=== PATIENT | female | born 1970 | race Caucasian/White ===

== ENCOUNTER 2017-11-04 12:34 | Emergency (ER) | payer MEDICAID ==
[~2017-11-04] VITALS: Ht 160 cm; Wt 85.0 kg
[~2017-11-04 12:34] MED LIST: ACET-2119 PO; ASPI81TA48 PO; BACL10TA PO; BUSP5TAB3 PO; GABA-338 PO; LOP25T PO; NORCO10T PO; PANT20TA3 PO; SERT50TA PO; ZOC40T PO
[2017-11-04 12:43] VITALS: BP 146/89
== END 2017-11-04 13:15 | disposition home or self-care (01) ==
LOC: ER 12:34
DX: M79.672 Pain in left foot (principal); M79.671 Pain in right foot; I25.10 Atherosclerotic heart disease of native coronary artery without angina pectoris; I25.2 Old myocardial infarction; F12.10 Cannabis abuse, uncomplicated; Z88.6 Allergy status to analgesic agent; Z88.8 Allergy status to other drugs, medicaments and biological substances; Z79.82 Long term (current) use of aspirin; Z95.1 Presence of aortocoronary bypass graft
CPT/HCPCS: 99281

== ENCOUNTER 2018-02-26 14:59 | Emergency (ER) | payer MEDICAID ==
[~2018-02-26] VITALS: Ht 160 cm; Wt 80.6 kg
[2018-02-26 15:26] VITALS: BP 113/54
[2018-02-26] MEDS ORDERED: CLIN300C85 PO (15:52)
== END 2018-02-26 16:05 | disposition home or self-care (01) ==
LOC: ER 14:59
DX: R21 Rash and other nonspecific skin eruption (principal); I25.10 Atherosclerotic heart disease of native coronary artery without angina pectoris; I25.2 Old myocardial infarction; G89.29 Other chronic pain; M54.9 Dorsalgia, unspecified; F12.10 Cannabis abuse, uncomplicated; Z95.1 Presence of aortocoronary bypass graft; Z79.82 Long term (current) use of aspirin; Z88.8 Allergy status to other drugs, medicaments and biological substances
CPT/HCPCS: 99284

== ENCOUNTER 2018-09-19 08:28 | Emergency (ER) | payer MEDICAID ==
[~2018-09-19] VITALS: Ht 160 cm; Wt 86.4 kg
[~2018-09-19 08:28] MED LIST changes: +CLIN-96 PO
[2018-09-19 09:14] VITALS: BP 125/93
[2018-09-19] MEDS ORDERED: CLIN150C8 PO (10:31)
== END 2018-09-19 10:46 | disposition home or self-care (01) ==
LOC: ER 08:28
DX: J02.9 Acute pharyngitis, unspecified (principal); R21 Rash and other nonspecific skin eruption; R49.0 Dysphonia; L53.8 Other specified erythematous conditions; I25.10 Atherosclerotic heart disease of native coronary artery without angina pectoris; I25.2 Old myocardial infarction; G89.29 Other chronic pain; F12.90 Cannabis use, unspecified, uncomplicated; Z95.5 Presence of coronary angioplasty implant and graft; Z90.49 Acquired absence of other specified parts of digestive tract; Z98.890 Other specified postprocedural states; Z98.51 Tubal ligation status; Z87.891 Personal history of nicotine dependence; Z60.2 Problems related to living alone; Z88.8 Allergy status to other drugs, medicaments and biological substances; Z79.82 Long term (current) use of aspirin; Z79.899 Other long term (current) drug therapy
CPT/HCPCS: 99283

== ENCOUNTER 2021-03-02 14:17 | Emergency (ER) | payer MEDICAID ==
[~2021-03-02] VITALS: Ht 160 cm; Wt 100.0 kg
[~2021-03-02 14:17] MED LIST changes: -CLIN-96 PO; +CLIN-97 PO; +CLIN150C8 PO; +PANT20TA18 PO; -PANT20TA3 PO
[2021-03-02 14:56] LABS: BASOPHILS % (AUTO) 0.2 % (0-1); EOSINOPHILS % (AUTO) 0.1 % (0-6); HEMATOCRIT 38.3 % (35.0-45.0); HEMOGLOBIN 12.2 g/dl (12.0-16.0); LYMPHOCYTES # (AUTO) 1.5 X10'3 (1.1-4.8); LYMPHOCYTES % (AUTO) 19.1 % (21-51); MEAN CORPUSCULAR HEMOGLOBIN 26.9 PG (27.0-31.0); MEAN CORPUSCULAR HGB CONC 31.8 g/dL (33.0-36.5); MEAN CORPUSCULAR VOLUME 84.5 FL (78-98); MEAN PLATELET VOLUME 8.3 FL (7.4-10.4); MONOCYTES # (AUTO) 0.6 X10'3 (0-0.9); MONOCYTES % (AUTO) 7.2 % (2-12); NEUTROPHILS # (AUTO) 5.7 X10'3 (1.8-7.7); NEUTROPHILS % (AUTO) 73.4 % (42-75); PLATELET COUNT 254 X10'3 (140-440); RED BLOOD COUNT 4.53 X10'6 (4.20-5.60); RED CELL DISTRIBUTION WIDTH 17.5 % (11.5-14.5); WHITE BLOOD COUNT 7.7 X10'3 (4.5-11.0)
[2021-03-02 15:01] LABS: URINE HCG NEGATIVE (NEG)
[2021-03-02 15:10] LABS: ALANINE AMINOTRANSFERASE 20 U/L (12-78); ALBUMIN 3.8 G/DL (3.4-5.0); ALBUMIN/GLOBULIN RATIO 0.9 (1.1-1.5); ALKALINE PHOSPHATASE 102 IU/L (46-116); ANION GAP 9 (8-16); ASPARTATE AMINO TRANSFERASE 14 U/L (10-37); BILIRUBIN,TOTAL 0.6 MG/DL (0.1-1.0); BLOOD UREA NITROGEN 7 MG/DL (7-18); BUN/CREATININE RATIO 8.2 (6.6-38.0); CALCIUM 8.7 MG/DL (8.5-10.1); CHLORIDE 104 MMOL/L (99-107); CREATININE 0.85 MG/DL (0.40-0.90); GLUCOSE 120 MG/DL (70-104); LIPASE 87 U/L (73-393); POTASSIUM 3.9 MMOL/L (3.5-5.1); SODIUM 139 MMOL/L (135-145); eGFR 70 ML/MIN
[2021-03-02 15:15] LABS: CLARITY,URINE SLIGHTLY CLOUDY (Clear); COLOR,URINE YELLOW (Yellow); GLUCOSE, URINE NEGATIVE (Neg); KETONES,URINE NEGATIVE (Neg); LEUKOCYTE ESTERASE ,URINE NEGATIVE (Neg); NITRITES, URINE NEGATIVE (Neg); OCCULT BLOOD,URINE TRACE-INTACT (Neg); PROTEIN,URINE NEGATIVE (Neg); UROBILINOGEN,URINE >=8.0 E.U/dL (0.2-1.0)
[2021-03-02 15:16] LABS: UA COLLECTION TYPE CLN CATCH MIDSTREAM
[2021-03-02 15:17] LABS: MUCUS STRANDS MODERATE /LPF (Neg); SQUAMOUS EPITHELIAL CELL,UR MANY /LPF (FEW)
[2021-03-02 15:19] LABS: BACTERIA,URINE FEW /HPF (Neg); WBC,URINE 0-4 /HPF (0-4)
[2021-03-02 16:21] VITALS: BP 133/94
[2021-03-02] MEDS ORDERED: acetaminophen 325mg tablet PO ONE (17:00)
[2021-03-02] MEDS ORDERED: ibuprofen tablet 400 MG TABLET PO ONE (17:00)
[2021-03-02] MEDS ORDERED: AMOX-115 PO (17:36)
[2021-03-02] MEDS ORDERED: ONDA4TAB6 PO (17:36)
[2021-03-02] MEDS ORDERED: amox tr/potassium clavulanate 875/125mg TAB PO ONE (17:40)
[2021-03-02] MEDS ORDERED: ondansetron 4mg rapidly disintigrating tab PO ONE (17:40)
== END 2021-03-02 17:48 | disposition home or self-care (01) ==
LOC: ER 14:18
DX: K57.92 Diverticulitis of intestine, part unspecified, without perforation or abscess without bleeding (principal); R10.32 Left lower quadrant pain; I25.10 Atherosclerotic heart disease of native coronary artery without angina pectoris; I25.2 Old myocardial infarction; G89.29 Other chronic pain; F12.90 Cannabis use, unspecified, uncomplicated; Z90.89 Acquired absence of other organs; Z98.51 Tubal ligation status; Z98.890 Other specified postprocedural states; Z60.2 Problems related to living alone; Z88.8 Allergy status to other drugs, medicaments and biological substances; Z79.2 Long term (current) use of antibiotics; Z79.82 Long term (current) use of aspirin; Z79.899 Other long term (current) drug therapy
CPT/HCPCS: 36415; 74176; 76830; 76856; 80053; 81001; 81025; 83690; 84145; 85025; 93976; 99285

== ENCOUNTER 2021-12-01 15:45 | Emergency (ER) | payer MEDICAID ==
[~2021-12-01] VITALS: Ht 160 cm; Wt 90.9 kg
[~2021-12-01 15:45] MED LIST changes: +ONDA4TAB6 PO
[2021-12-01 16:51] LABS: CLARITY,URINE CLOUDY (Clear); COLOR,URINE YELLOW (Yellow); GLUCOSE, URINE NEGATIVE (Neg); KETONES,URINE NEGATIVE (Neg); LEUKOCYTE ESTERASE ,URINE NEGATIVE (Neg); NITRITES, URINE NEGATIVE (Neg); OCCULT BLOOD,URINE LARGE (Neg); PH,URINE 5.5 (4.8-8.0); PROTEIN,URINE 30 mg/dl (Neg); UROBILINOGEN,URINE 0.2 E.U/dL (0.2-1.0)
[2021-12-01 16:51] LABS: BASOPHILS % (AUTO) 0.3 % (0-1); EOSINOPHILS % (AUTO) 0.4 % (0-6); HEMATOCRIT 38.3 % (35.0-45.0); HEMOGLOBIN 12.5 g/dl (12.0-16.0); LYMPHOCYTES # (AUTO) 1.6 X10'3 (1.1-4.8); LYMPHOCYTES % (AUTO) 21.7 % (21-51); MEAN CORPUSCULAR HEMOGLOBIN 27.3 PG (27.0-31.0); MEAN CORPUSCULAR HGB CONC 32.5 g/dL (33.0-36.5); MEAN CORPUSCULAR VOLUME 83.8 FL (78-98); MONOCYTES # (AUTO) 0.5 X10'3 (0-0.9); MONOCYTES % (AUTO) 7.3 % (2-12); NEUTROPHILS # (AUTO) 5.2 X10'3 (1.8-7.7); NEUTROPHILS % (AUTO) 70.3 % (42-75); PLATELET COUNT 274 X10'3 (140-440); RED BLOOD COUNT 4.58 X10'6 (4.20-5.60); RED CELL DISTRIBUTION WIDTH 16.9 % (11.5-14.5); WHITE BLOOD COUNT 7.4 X10'3 (4.5-11.0)
[2021-12-01 16:53] LABS: URINE HCG NEGATIVE (NEG)
[2021-12-01 16:54] LABS: UA COLLECTION TYPE NON-SPECIFIED
[2021-12-01 17:03] LABS: BACTERIA,URINE 1+ /HPF (Neg); MUCUS STRANDS NONE SEEN /LPF (Neg); RBC,URINE 20-50 /HPF (0-2); SQUAMOUS EPITHELIAL CELL,UR MODERATE /LPF (FEW)
[2021-12-01 17:05] LABS: ALANINE AMINOTRANSFERASE 21 U/L (12-78); ALBUMIN 3.8 G/DL (3.4-5.0); ALBUMIN/GLOBULIN RATIO 0.9 (1.1-1.5); ALKALINE PHOSPHATASE 81 IU/L (46-116); ANION GAP 8 (8-16); ASPARTATE AMINO TRANSFERASE 35 U/L (10-37); BILIRUBIN,TOTAL 0.4 MG/DL (0.1-1.0); BLOOD UREA NITROGEN 8 MG/DL (7-18); BUN/CREATININE RATIO 8.7 (6.6-38.0); CHLORIDE 104 MMOL/L (99-107); CREATININE 0.92 MG/DL (0.40-0.90); GLUCOSE 104 MG/DL (70-104); LIPASE 188 U/L (73-393); POTASSIUM 3.8 MMOL/L (3.5-5.1); SODIUM 139 MMOL/L (135-145); TOTAL CARBON DIOXIDE 27.4 MMOL/L (24-32); eGFR 64 ML/MIN
[2021-12-01] MEDS ORDERED: DOXY100C76 PO (20:04)
[2021-12-01] MEDS ORDERED: FLO0.4C PO (20:04)
[2021-12-01] MEDS ORDERED: IBUP-1986 PO (20:04)
[2021-12-01] MEDS ORDERED: HYDR-3972 PO (20:04)
[2021-12-01 20:12] VITALS: BP 120/78
== END 2021-12-01 20:15 | disposition home or self-care (01) ==
LOC: ER 15:45
DX: N30.01 Acute cystitis with hematuria (principal); I51.9 Heart disease, unspecified; G89.29 Other chronic pain; M54.9 Dorsalgia, unspecified; Z88.8 Allergy status to other drugs, medicaments and biological substances; Z79.899 Other long term (current) drug therapy
CPT/HCPCS: 36415; 74176; 80053; 81001; 81025; 83690; 85025; 87088; 99284

== ENCOUNTER 2022-06-08 12:24 | Emergency (ER) | payer MEDICAID ==
[~2022-06-08] VITALS: Ht 160 cm; Wt 63.0 kg
[~2022-06-08 12:24] MED LIST changes: +IBUP-1986 PO
--- NOTE | 2022-06-08 13:47 | NUR ---
patient started having cp while in the lobby,ekg completed.placed patient on acs protocol.Family with patient.
[2022-06-08 14:16] LABS: BASOPHILS # (AUTO) 0.1 X10'3 (0-0.2); EOSINOPHILS % (AUTO) 0.1 % (0-6); HEMATOCRIT 41.8 % (35.0-45.0); HEMOGLOBIN 13.3 g/dl (12.0-16.0); LYMPHOCYTES # (AUTO) 2.1 X10'3 (1.1-4.8); LYMPHOCYTES % (AUTO) 28.5 % (21-51); MEAN CORPUSCULAR HEMOGLOBIN 27.7 PG (27.0-31.0); MEAN CORPUSCULAR HGB CONC 31.7 g/dL (33.0-36.5); MEAN CORPUSCULAR VOLUME 87.3 FL (78-98); MEAN PLATELET VOLUME 7.9 FL (7.4-10.4); MONOCYTES # (AUTO) 0.4 X10'3 (0-0.9); MONOCYTES % (AUTO) 5.6 % (2-12); NEUTROPHILS # (AUTO) 4.7 X10'3 (1.8-7.7); NEUTROPHILS % (AUTO) 64.8 % (42-75); PLATELET COUNT 265 X10'3 (140-440); RED BLOOD COUNT 4.79 X10'6 (4.20-5.60); RED CELL DISTRIBUTION WIDTH 15.6 % (11.5-14.5); WHITE BLOOD COUNT 7.3 X10'3 (4.5-11.0)
[2022-06-08 14:25] LABS: ALANINE AMINOTRANSFERASE 22 U/L (12-78); ALBUMIN 3.9 G/DL (3.4-5.0); ALBUMIN/GLOBULIN RATIO 0.9 (1.1-1.5); ALKALINE PHOSPHATASE 89 IU/L (46-116); ANION GAP 9 (8-16); ASPARTATE AMINO TRANSFERASE 21 U/L (10-37); BILIRUBIN,TOTAL 0.3 MG/DL (0.1-1.0); BLOOD UREA NITROGEN 12 MG/DL (7-18); BUN/CREATININE RATIO 14.8 (6.6-38.0); CALCIUM 9.7 MG/DL (8.5-10.1); CHLORIDE 102 MMOL/L (99-107); CREATININE 0.81 MG/DL (0.40-0.90); GLUCOSE 102 MG/DL (70-104); POTASSIUM 3.6 MMOL/L (3.5-5.1); SODIUM 138 MMOL/L (135-145); TOTAL CARBON DIOXIDE 27.2 MMOL/L (24-32); TOTAL PROTEIN 8.2 G/DL (6.4-8.2); eGFR 74 ML/MIN
[2022-06-08 17:12] LABS: ETHANOL < 0.010 GM/DL (0.0-0.010)
[2022-06-08] MEDS ORDERED: LORazepam 1 MG tablet PO ONE (19:55)
[2022-06-08] MEDS: gabapentin 300mg capsule PO SCH (20:19)
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
--- NOTE | 2022-06-08 20:33 | NUR ---
Patients mother is Emaly. Phone is [phone]
--- NOTE | 2022-06-08 20:34 | NUR ---
Patients purse and cell phone given to her mother. Patients clothing is in the locker
--- NOTE | 2022-06-08 21:15 | NUR ---
Patient is now sleeping quietly, mid fowlers position in bed. In view from nurses station.
--- NOTE | 2022-06-08 21:24 | NUR ---
No urine was collected in the main ER. When possible one will be collected in overflow.
--- NOTE | 2022-06-08 22:26 | NUR ---
Patient continues to ramble. She exhibits some intrusive behavior. Cm the Gregory from [facility] is here now interview this patient. She will transport to shortly.
--- NOTE | 2022-06-08 23:24 | NUR ---
breaking primary RN for lunch patient in bed eyes closed rr even un labored no needs at this time
--- NOTE | 2022-06-09 00:34 | NUR ---
Patient is sleeping quietly, mid fowlers position in bed.
[2022-06-09] MEDS ORDERED: PRAZ2CAP2 PO (00:47)
[2022-06-09] MEDS ORDERED: SIMV-341 PO (00:47)
[2022-06-09] MEDS ORDERED: LOP12.5T PO (00:57)
[2022-06-09] MEDS ORDERED: PANT-47 PO (00:57)
[2022-06-09] MEDS ORDERED: GABA-530 PO (00:57)
[2022-06-09] MEDS ORDERED: BUSP5TAB3 PO (00:57)
[2022-06-09] MEDS ORDERED: VENL150C4 PO (01:22)
[2022-06-09] MEDS ORDERED: LISI10TA27 PO (01:22)
--- NOTE | 2022-06-09 01:40 | NUR ---
Patient awoke, she is calmer now. She presents as more linear. Urine sample obtained CCMS, sent to lab for analysis. Patient returns to sleep.
--- NOTE | 2022-06-09 01:41 | NUR ---
Med Rec is complete and faxed to pharmacy.
[2022-06-09 01:42] LABS: URINE AMPHETAMINE SCREEN POSITIVE (Neg); URINE BARBITUATE SCREEN NEGATIVE (Neg); URINE BENZODIAZEPINES SCREEN NEGATIVE (Neg); URINE CANNABINOID SCREEN POSITIVE (Neg); URINE COCAINE SCREEN NEGATIVE (Neg); URINE METHADONE SCREEN NEGATIVE (Neg); URINE OPIATE SCREEN NEGATIVE (Neg); URINE PHENCYCLIDINE SCREEN NEGATIVE (Neg)
[2022-06-09 02:41] LABS: CLARITY,URINE SLIGHTLY CLOUDY (Clear); COLOR,URINE YELLOW (Yellow); GLUCOSE, URINE NEGATIVE (Neg); KETONES,URINE >=80 mg/dl (Neg); LEUKOCYTE ESTERASE ,URINE TRACE (Neg); NITRITES, URINE POSITIVE (Neg); OCCULT BLOOD,URINE SMALL (Neg); PROTEIN,URINE NEGATIVE (Neg)
[2022-06-09 02:45] LABS: UA COLLECTION TYPE CLN CATCH MIDSTREAM
[2022-06-09 04:18] LABS: BACTERIA,URINE 4+ /HPF (Neg); MUCUS STRANDS MANY /LPF (Neg); RBC,URINE 0-2 /HPF (0-2); SQUAMOUS EPITHELIAL CELL,UR MANY /LPF (FEW); WBC,URINE 30-50 /HPF (0-4)
[2022-06-09 05:35] VITALS: BP 122/83
[2022-06-09] MEDS: gabapentin 300mg capsule PO SCH ×2 (07:18→13:03)
[2022-06-09] MEDS ORDERED: busPIRone 5mg tablet PO SCH (08:00)
[2022-06-09] MEDS ORDERED: pantoprazole 40mg Tablet.DR PO SCH (08:00)
[2022-06-09] MEDS ORDERED: gabapentin 300mg capsule PO SCH (08:00)
[2022-06-09] MEDS ORDERED: venlafaxine XR 75mg capsule (Q24H) PO SCH (08:00)
--- NOTE | 2022-06-09 08:10 | NUR ---
connie sent pt packet to [facility]
[2022-06-09 11:46] LABS: BASOPHILS % (AUTO) 0.4 % (0-1); EOSINOPHILS % (AUTO) 0.2 % (0-6); HEMATOCRIT 37.8 % (35.0-45.0); HEMOGLOBIN 12.5 g/dl (12.0-16.0); LYMPHOCYTES # (AUTO) 1.5 X10'3 (1.1-4.8); MEAN CORPUSCULAR HEMOGLOBIN 28.6 PG (27.0-31.0); MEAN CORPUSCULAR HGB CONC 33.1 g/dL (33.0-36.5); MEAN CORPUSCULAR VOLUME 86.4 FL (78-98); MEAN PLATELET VOLUME 7.6 FL (7.4-10.4); MONOCYTES # (AUTO) 0.4 X10'3 (0-0.9); NEUTROPHILS % (AUTO) 61.4 % (42-75); PLATELET COUNT 237 X10'3 (140-440); RED BLOOD COUNT 4.38 X10'6 (4.20-5.60); RED CELL DISTRIBUTION WIDTH 15.6 % (11.5-14.5); WHITE BLOOD COUNT 4.8 X10'3 (4.5-11.0)
[2022-06-09 12:12] LABS: ALANINE AMINOTRANSFERASE 23 U/L (12-78); ALBUMIN 3.2 G/DL (3.4-5.0); ALBUMIN/GLOBULIN RATIO 0.9 (1.1-1.5); ALKALINE PHOSPHATASE 73 IU/L (46-116); ANION GAP 7 (8-16); ASPARTATE AMINO TRANSFERASE 21 U/L (10-37); BILIRUBIN,TOTAL 0.4 MG/DL (0.1-1.0); BLOOD UREA NITROGEN 13 MG/DL (7-18); BUN/CREATININE RATIO 15.1 (6.6-38.0); CALCIUM 8.8 MG/DL (8.5-10.1); CHLORIDE 104 MMOL/L (99-107); CREATININE 0.86 MG/DL (0.40-0.90); GLUCOSE 112 MG/DL (70-104); POTASSIUM 3.6 MMOL/L (3.5-5.1); SODIUM 139 MMOL/L (135-145); TOTAL CARBON DIOXIDE 28.5 MMOL/L (24-32); TOTAL PROTEIN 6.9 G/DL (6.4-8.2); eGFR 69 ML/MIN
[2022-06-09] MEDS ORDERED: prazosin 1mg capsule PO SCH (21:00)
[2022-06-09] MEDS ORDERED: atorvastatin 10mg tablet PO SCH (21:00)
== END 2022-06-09 15:20 ==
LOC: ER 12:25
DX: R45.851 Suicidal ideations (principal); Z20.822 Contact with and (suspected) exposure to COVID-19; F15.10 Other stimulant abuse, uncomplicated; F29 Unspecified psychosis not due to a substance or known physiological condition
CPT/HCPCS: 36415; 71045; 80053; 80305; 80320; 81001; 83880; 84443; 84484; 85025; 87811; 93005; 99285

== ENCOUNTER 2022-11-21 13:04 | Emergency (ER) | payer MEDICAID ==
[~2022-11-21] VITALS: Ht 160 cm; Wt 86.4 kg
[~2022-11-21 13:04] MED LIST changes: -ACET-2119 PO; -ASPI81TA48 PO; -BACL10TA PO; -CLIN-97 PO; -CLIN150C8 PO; -GABA-338 PO; +GABA-530 PO; -IBUP-1986 PO; +LISI10TA27 PO; +LOP12.5T PO; -LOP25T PO; -NORCO10T PO; -ONDA4TAB6 PO; +PANT-47 PO; -PANT20TA18 PO; +PRAZ2CAP2 PO; -SERT50TA PO; +SIMV-341 PO; +VENL150C4 PO; -ZOC40T PO
[2022-11-21 13:11] VITALS: BP 100/71
[2022-11-21 14:42] LABS: CLARITY,URINE CLOUDY (Clear); COLOR,URINE YELLOW (Yellow); GLUCOSE, URINE NEGATIVE (Neg); KETONES,URINE NEGATIVE (Neg); LEUKOCYTE ESTERASE ,URINE SMALL (Neg); NITRITES, URINE NEGATIVE (Neg); OCCULT BLOOD,URINE TRACE-INTACT (Neg); PROTEIN,URINE NEGATIVE (Neg); UROBILINOGEN,URINE 0.2 E.U/dL (0.2-1.0)
[2022-11-21 14:55] LABS: UA COLLECTION TYPE CLN CATCH MIDSTREAM
[2022-11-21 14:58] LABS: SQUAMOUS EPITHELIAL CELL,UR MODERATE /LPF (FEW)
[2022-11-21 14:59] LABS: MUCUS STRANDS FEW /LPF (Neg); TRANSITIONAL EPI CELLS,URINE FEW /HPF
[2022-11-21 15:00] LABS: WBC,URINE TNTC /HPF (0-4)
[2022-11-21 15:03] LABS: BACTERIA,URINE 2+ /HPF (Neg)
[2022-11-21] MEDS ORDERED: CEPH250T PO (15:07)
== END 2022-11-21 15:14 | disposition home or self-care (01) ==
LOC: ER 13:04
DX: N39.0 Urinary tract infection, site not specified (principal); I25.10 Atherosclerotic heart disease of native coronary artery without angina pectoris; I10 Essential (primary) hypertension; I25.2 Old myocardial infarction; G89.29 Other chronic pain; F41.9 Anxiety disorder, unspecified; F32.9 Major depressive disorder, single episode, unspecified; F12.90 Cannabis use, unspecified, uncomplicated; F15.90 Other stimulant use, unspecified, uncomplicated; Z90.49 Acquired absence of other specified parts of digestive tract; Z98.51 Tubal ligation status; Z98.890 Other specified postprocedural states; Z60.2 Problems related to living alone; Z88.8 Allergy status to other drugs, medicaments and biological substances; Z88.6 Allergy status to analgesic agent; Z79.899 Other long term (current) drug therapy
CPT/HCPCS: 81001; 87077; 87088; 87186; 99283

== ENCOUNTER 2023-11-29 14:26 | Emergency (ER) | payer MEDICAID ==
[~2023-11-29] VITALS: Ht 160 cm; Wt 89.4 kg
[~2023-11-29 14:26] MED LIST changes: -VENL150C4 PO; +VENL150C5 PO
[2023-11-29 17:17] VITALS: BP 83/51; PULSE 82; RESP 15; TEMP 98.6; O2SAT 92
== END 2023-11-29 17:19 | disposition home or self-care (01) ==
LOC: ER 14:26
DX: S13.4XXA Sprain of ligaments of cervical spine, initial encounter (principal); S09.90XA Unspecified injury of head, initial encounter; R55 Syncope and collapse; F12.90 Cannabis use, unspecified, uncomplicated; F15.90 Other stimulant use, unspecified, uncomplicated; Z88.5 Allergy status to narcotic agent; Z88.8 Allergy status to other drugs, medicaments and biological substances; Z79.899 Other long term (current) drug therapy; Z98.890 Other specified postprocedural states
CPT/HCPCS: 70450; 72125; 93005; 99284